=== PATIENT | male | born 1990 ===

== ENCOUNTER 2016-09-27 15:24 | Emergency (ER) | payer MEDICAID, OTHER ==
[2016-09-27 17:39] LABS: BASO # 0.1 K/uL (0.0-0.2); BASO % 0.8 % (0.0-2.0); EOS # 0.3 K/uL (0.0-0.7); EOS % 2.7 % (0.0-4.0); HEMOGLOBIN 15.6 g/dL (12.0-18.0); LYMPH # 2.6 K/uL (1.0-4.3); LYMPH % 25.4 % (20.0-40.0); MEAN CORPUSCULAR HEMOGLOBIN 30.7 pg (27.0-31.0); MEAN CORPUSCULAR HGB CONC 33.4 g/dL (33.0-37.0); MEAN PLATELET VOLUME 8.5 fL (7.2-11.7); MONO # 0.7 K/uL (0.0-0.8); MONO % 7.2 % (0.0-10.0); NEUT # 6.5 K/uL (1.8-7.0); NEUT % 63.9 % (50.0-75.0); RBC 5.09 Mil/uL (4.40-5.90); WHITE BLOOD COUNT 10.2 K/uL (4.8-10.8)
[2016-09-27 17:49] LABS: URINE BACTERIA RARE (<OCC); URINE BILIRUBIN NEGATIVE (NEGATIVE); URINE BLOOD 1+ (NEGATIVE); URINE CLARITY Clear (Clear); URINE COLOR Yellow (YELLOW); URINE GLUCOSE (UA) NORMAL (Normal); URINE LEUKOCYTE ESTERASE NEG Leu/uL (Negative); URINE NITRATE NEGATIVE (NEGATIVE); URINE PROTEIN NEGATIVE (NEGATIVE); URINE UROBILINOGEN NORMAL mg/dL (0.2-1.0)
[2016-09-27 17:51] VITALS: RESP 20
[2016-09-27 17:51] LABS: BARBITURATES, UR NEGATIVE (NEGATIVE); BENZODIAZEPINES, UR NEGATIVE (NEGATIVE)
[2016-09-27 17:54] LABS: OPIATES, UR NEGATIVE (NEGATIVE)
[2016-09-27 17:55] LABS: PHENCYCLIDINE, UR NEGATIVE (NEGATIVE)
[2016-09-27 18:15] LABS: ALBUMIN 4.4 g/dL (3.5-5.0)
[2016-09-27 18:18] LABS: ALB/GLOB RATIO 1.2 (1.0-2.1); AST/SGOT 45 U/L (17-59); GFR AFRICAN-AMERICAN > 60; GFR NON-AFRICAN AMERICAN > 60
[2016-09-27 18:19] LABS: ALT/SGPT 77 U/L (21-72); BLOOD UREA NITROGEN 13 mg/dL (9-20); CALCIUM 9.3 mg/dl (8.6-10.4)
[2016-09-27 18:20] LABS: SALICYLATE < 1.0 mg/dL 1
[2016-09-27 18:28] LABS: ACETAMINOPHEN < 10.0 ug/mL (10.0-30.0)
--- NOTE | 2016-09-27 18:53 | C.PDOC ---
History Of Present Illness Pt states a drank a sip of rubbing alcohol this morning. He states he did it because he wants to try alcohol, but no "regular alcohol" is present at home. Time Seen by Provider: 09/27/16 16:13 Chief Complaint (Nursing): Psychiatric Evaluation History Per: Patient, Family History/Exam Limitations: other (Autism) Onset/Duration Of Symptoms: Hrs (this morning) Current Symptoms Are (Timing): Still Present Severity: Moderate Associated Symptoms: Anxiety, Depression. denies: Suicidal Thoughts, Suicidal Plan Additional History Per: Prior Records Past Medical History Reviewed: Historical Data, Nursing Documentation, Vital Signs Vital Signs: Last Vital Signs Temp 98.7 F 09/27/16 17:40 Pulse 69 09/27/16 17:40 Resp 20 09/27/16 17:40 BP 128/89 09/27/16 17:40 Pulse Ox 94 L 09/27/16 17:40 - Medical History PMH: Anxiety, Depression Other PMH: Autism Surgical History: No Surg Hx Family History: States: Unknown Family Hx - Social History Hx Alcohol Use: No Hx Substance Use: No Review Of Systems Except As Marked, All Systems Reviewed And Found Negative. Constitutional: Negative for: Fever, Weakness Cardiovascular: Negative for: Chest Pain Respiratory: Negative for: Shortness of Breath Gastrointestinal: Negative for: Nausea, Vomiting, Abdominal Pain, Melena, Hematochezia, Hematemesis Musculoskeletal: Negative for: Neck Pain Skin: Negative for: Rash Neurological: Negative for: Weakness, Numbness, Seizures, Altered Mental Status Psych: Negative for: Psychosis Physical Exam - Physical Exam Appears: Non-toxic, No Acute Distress Skin: Normal Color, Warm, Dry, No Rash Head: Atraumatic, Normacephalic Eye(s): bilateral: Normal Inspection, PERRL, EOMI Neck: Normal ROM, Supple Cardiovascular: Rhythm Regular Respiratory: Normal Breath Sounds, No Accessory Muscle Use Gastrointestinal/Abdominal: Soft, No Tenderness Back: No CVA Tenderness Extremity: Normal ROM Neurological/Psych: Oriented x3, Normal Motor, Normal Sensation ED Course And Treatment - Laboratory Results Result Diagrams: 09/27/16 17:36 09/27/16 17:36 Lab Interpretation: No Acute Changes Progress Note: Pt was evaluated by the hot blast worker who d/w Dr. Turner. They psychiatrically cleared pt for discharge home. Reassessment Condition: Improved Disposition Counseled Patient/Family Regarding: Studies Performed, Diagnosis, Need For Followup - Disposition Disposition: HOME/ ROUTINE Disposition Time: 18:54 Condition: STABLE Additional Instructions: Follow up with outpatient mental health. Return to the ER you develop suicidal or homicidal thoughts, hallucinations, worsening of symptoms or if you have any other concerns. Instructions: Autism Spectrum Disorder (ED) - Clinical Impression Clinical Impression: Autism, Depression
[2016-09-27 18:56] VITALS: BP 120/78; PULSE 72; TEMP 97.7; O2SAT 98
== END 2016-09-27 19:00 | disposition home or self-care (01) ==
LOC: C.ER 15:24
DX: F32.89 Other specified depressive episodes (principal); F84.0 Autistic disorder